=== PATIENT | female | born 1985 | race Hispanic/Latino ===

== ENCOUNTER 2019-04-13 10:07 | Emergency (ER) | payer BC, OTHER ==
[2019-04-13 10:54] LABS: BASOPHILS % (AUTO) 0.4 % (0.0-5.0); EOSINOPHILS % (AUTO) 1.3 % (0.0-8.0); HEMATOCRIT 40.3 % (36-48); LYMPHOCYTES % (AUTO) 24.1 % (21.0-51.0); MEAN CORPUSCULAR HEMOGLOBIN 27.4 pg (27.0-33.0); MEAN CORPUSCULAR VOLUME 82.9 fL (79-99); MONOCYTES % (AUTO) 5.3 % (3.0-13.0); NEUTROPHILS % (AUTO) 68.6 % (40.0-77.0); PLATELET COUNT (AUTO) 293 K/uL (130-400); RED BLOOD CELL COUNT(AUTO) 4.86 MIL/uL (4.00-5.50); RED CELL DISTRIBUTION WIDTH 12.2 % (11.0-15.5); WHITE BLOOD COUNT (AUTO) 7.8 K/uL (4.8-10.8)
[2019-04-13 10:58] LABS: APPEARANCE,URINE Clear (CLEAR); BILIRUBIN,URINE Negative (NEGATIVE); COLOR,URINE Yellow (YELLOW); GLUCOSE, URINE (UA) Negative (NEGATIVE); KETONES,URINE Negative (NEGATIVE); LEUKOCYTE ESTERASE ,URINE Negative (NEGATIVE); NITRATE,URINE Negative (NEGATIVE); OCCULT BLOOD,URINE Negative (NEGATIVE); PROTEIN,URINE Negative (NEGATIVE)
[2019-04-13 11:00] LABS: CREATININE 0.8 mg/dL (0.5-1.5); POTASSIUM 3.8 mmol/L (3.5-5.1)
[2019-04-13 11:06] LABS: HCG,QUAL RESULT NEGATIVE (NEGATIVE)
[2019-04-13 11:07] LABS: ALBUMIN 3.6 g/dL (3.5-5.0); BILIRUBIN,TOTAL 0.8 mg/dL (0.2-1.0); TOTAL PROTEIN, SERUM 8.3 g/dL (6.0-8.3)
== END 2019-04-13 11:23 | disposition home or self-care (01) ==
LOC: EDH 10:07
DX: R10.11 Right upper quadrant pain (principal); Z98.890 Other specified postprocedural states; Z88.0 Allergy status to penicillin
CPT/HCPCS: 36415; 80053; 81003; 81025; 83690; 85025

== ENCOUNTER 2022-03-27 15:57 | Emergency (ER) | payer BC ==
[~2022-03-27] VITALS: Ht 167.6 cm; Wt 140.6 kg
[2022-03-27 16:45] LABS: BASOPHILS % (AUTO) 0.4 % (0.0-5.0); EOSINOPHILS % (AUTO) 2.4 % (0.0-8.0); HEMATOCRIT 42.7 % (36-48); LYMPHOCYTES % (AUTO) 28.7 % (21.0-51.0); MEAN CORPUSCULAR HEMOGLOBIN 28.3 pg (27.0-33.0); MEAN CORPUSCULAR HGB CONC 33.5 g/dL (32.0-36.0); MEAN CORPUSCULAR VOLUME 84.4 fL (79-99); MONOCYTES % (AUTO) 8.1 % (3.0-13.0); NEUTROPHILS % (AUTO) 60.1 % (40.0-77.0); PLATELET COUNT (AUTO) 318 K/uL (130-400); RED BLOOD CELL COUNT(AUTO) 5.06 MIL/uL (4.00-5.50); RED CELL DISTRIBUTION WIDTH 12.6 % (11.0-15.5); WHITE BLOOD COUNT (AUTO) 9.5 K/uL (4.8-10.8)
[2022-03-27 16:52] LABS: APPEARANCE,URINE CLEAR (CLEAR); BILIRUBIN,URINE NEGATIVE (NEGATIVE); COLOR,URINE LIGHT-YELLOW (YELLOW); GLUCOSE, URINE (UA) NEGATIVE (NEGATIVE); KETONES,URINE NEGATIVE (NEGATIVE); LEUKOCYTE ESTERASE ,URINE 25 Leu/uL (NEGATIVE); NITRATE,URINE NEGATIVE (NEGATIVE); OCCULT BLOOD,URINE NEGATIVE (NEGATIVE); PH,URINE 6.5 (5.0-8.0); PROTEIN,URINE NEGATIVE (NEGATIVE); UROBILINOGEN,URINE 0.2 mg/dL (0.2-1.0)
[2022-03-27 16:55] LABS: HCG,QUALITATIVE URINE NEGATIVE (NEGATIVE)
[2022-03-27 17:12] LABS: BACTERIA,URINE RARE /HPF (None Seen); RBC,URINE 0-1 /HPF (0-1); SQUAMOUS EPITHELIAL CELL,UR FEW /HPF (0-2)
[2022-03-27 17:24] LABS: ALBUMIN 3.7 g/dL (3.5-5.0); CREATININE 0.7 mg/dL (0.5-1.5); POTASSIUM 3.8 mmol/L (3.5-5.1); TOTAL PROTEIN, SERUM 8.9 g/dL (6.0-8.3)
[2022-03-27 18:42] VITALS: BP 141/78
[2022-03-27] MEDS ORDERED: SULF1TAB42 PO (19:24)
== END 2022-03-27 19:30 | disposition home or self-care (01) ==
LOC: EDH 15:57
DX: J18.9 Pneumonia, unspecified organism (principal); R07.89 Other chest pain; I10 Essential (primary) hypertension; Z20.822 Contact with and (suspected) exposure to COVID-19
CPT/HCPCS: 99284; 71045; 87635; 84484; 80053; 85025; 87804 ×2; 81001; 81025; 36415; 93005; C9803

== ENCOUNTER 2023-07-08 22:49 | Emergency (ER) | payer BC ==
[~2023-07-08] VITALS: Ht 167.6 cm; Wt 149.7 kg
[~2023-07-08 22:49] MED LIST: SULF1TAB42 PO
[2023-07-09 00:52] VITALS: BP 138/82; PULSE 85; RESP 18; O2SAT 99
== END 2023-07-09 00:55 | disposition home or self-care (01) ==
LOC: EDH 22:49
DX: M25.521 Pain in right elbow (principal); R20.0 Anesthesia of skin; I10 Essential (primary) hypertension; Z98.890 Other specified postprocedural states
CPT/HCPCS: 73030; 73060; 73080

== ENCOUNTER → 2023-07-15 | Outpatient (CLI) | payer BC ==
[~2023-07-15] MED LIST changes: +LORA10CA PO; +METO100T14 PO
[2023-07-15 12:42] LABS: BASOPHILS # (AUTO) 0.05 K/uL (0.00-0.20); BASOPHILS % (AUTO) 0.5 % (0.0-5.0); EOSINOPHILS # (AUTO) 0.19 K/uL (0.00-0.70); EOSINOPHILS % (AUTO) 1.7 % (0.0-8.0); HEMATOCRIT 44.6 % (36-48); IMMATURE GRANULOCYTE ABSOLUTE 0.04 K/uL (0-1); LYMPHOCYTES # (AUTO) 2.5 K/uL (1.0-4.8); LYMPHOCYTES % (AUTO) 22.8 % (21.0-51.0); MEAN CORPUSCULAR HEMOGLOBIN 28.7 pg (27.0-33.0); MEAN CORPUSCULAR HGB CONC 33.6 g/dL (32.0-36.0); MEAN CORPUSCULAR VOLUME 85.3 fL (79-99); MONOCYTES # (AUTO) 0.7 K/uL (0.1-1.0); MONOCYTES % (AUTO) 6.3 % (3.0-13.0); NEUTROPHILS # (AUTO) 7.6 K/uL (1.8-7.7); NEUTROPHILS % (AUTO) 68.3 % (40.0-77.0); PLATELET COUNT (AUTO) 321 K/uL (130-400); RED BLOOD CELL COUNT(AUTO) 5.23 MIL/uL (4.00-5.50); RED CELL DISTRIBUTION WIDTH 12.2 % (11.0-15.5); WHITE BLOOD COUNT (AUTO) 11.1 K/uL (4.8-10.8)
[2023-07-15 13:10] LABS: HEMOGLOBIN A1C 6.8 % (4.0-6.0)
[2023-07-15 13:31] LABS: ALBUMIN 3.5 g/dL (3.5-5.0); BILIRUBIN,TOTAL 0.8 mg/dL (0.2-1.0); CREATININE 0.7 mg/dL (0.5-1.0); MAGNESIUM 1.8 mg/dL (1.80-2.40); POTASSIUM 3.9 mmol/L (3.5-5.1); THYROID STIMULATING HORMONE 3.08 uIU/mL (0.36-3.74); TOTAL PROTEIN, SERUM 8.7 g/dL (6.0-8.3)
== END | disposition home or self-care (01) ==
LOC: RAH 09:06
PROVIDERS: ATTEND Surgery
DX: I10 Essential (primary) hypertension (principal); E66.01 Morbid (severe) obesity due to excess calories; K76.0 Fatty (change of) liver, not elsewhere classified; E78.00 Pure hypercholesterolemia, unspecified; R16.0 Hepatomegaly, not elsewhere classified; E11.9 Type 2 diabetes mellitus without complications; M19.91 Primary osteoarthritis, unspecified site; Z79.899 Other long term (current) drug therapy
CPT/HCPCS: 36415; 76705; 80050; 80053; 80061; 82306; 82607; 82746; 83036; 83540; 83735; 84207; 84425; 84436; 84443; 84446; 84481; 84590; 84630; 85025

== ENCOUNTER → 2023-07-31 | Outpatient (CLI) | payer SELFPAY ==
[~2023-07-31] MED LIST changes: -LORA10CA PO; -METO100T14 PO
== END | disposition home or self-care (01) ==
LOC: DTH 16:06
PROVIDERS: ATTEND Surgery
DX: Z71.3 Dietary counseling and surveillance (principal); E66.01 Morbid (severe) obesity due to excess calories; I10 Essential (primary) hypertension; M19.91 Primary osteoarthritis, unspecified site; K76.0 Fatty (change of) liver, not elsewhere classified; E11.9 Type 2 diabetes mellitus without complications
CPT/HCPCS: 97803

== ENCOUNTER → 2023-08-26 | Outpatient (CLI) | payer SELFPAY | END | disposition home or self-care (01) | LOC: DTH 16:09 | PROVIDERS: ATTEND Surgery | DX: E66.01 Morbid (severe) obesity due to excess calories (principal); G47.33 Obstructive sleep apnea (adult) (pediatric); I10 Essential (primary) hypertension; M19.91 Primary osteoarthritis, unspecified site; K76.0 Fatty (change of) liver, not elsewhere classified; E11.9 Type 2 diabetes mellitus without complications; Z68.43 Body mass index [BMI] 50.0-59.9, adult; Z71.3 Dietary counseling and surveillance | CPT/HCPCS: 97803 ==

== ENCOUNTER 2023-09-08 06:57 | Day surgery (SDC) | payer BC ==
[~2023-09-08] VITALS: Ht 167.6 cm; Wt 148.3 kg
[~2023-09-08 06:57] MED LIST changes: +METO100T14 PO; -SULF1TAB42 PO
[2023-09-08] MEDS ORDERED: 0.9%NACL 1000ML 1,000 ML IV ONE (07:14)
[2023-09-08 07:30] VITALS: BP 150/108; PULSE 84; RESP 16
[2023-09-08] MEDS ORDERED: LORA10CA PO (07:55)
[2023-09-08] MEDS ORDERED: PROPOFOL 10 MG/ML 20ML VIAL IV ONE ×2 (08:01→08:11)
[2023-09-08] MEDS ORDERED: LIDOCAINE PF 100MG/5ML (2%) SYRINGE 5ML ONE (08:03)
== END 2023-09-08 08:50 | disposition home or self-care (01) ==
LOC: DAH 06:57 → ENDO 06:57
PROVIDERS: ATTEND Surgery
DX: K21.9 Gastro-esophageal reflux disease without esophagitis (principal); I10 Essential (primary) hypertension; G47.30 Sleep apnea, unspecified; K76.0 Fatty (change of) liver, not elsewhere classified; E11.9 Type 2 diabetes mellitus without complications; E66.01 Morbid (severe) obesity due to excess calories; Z68.43 Body mass index [BMI] 50.0-59.9, adult; Z79.899 Other long term (current) drug therapy; Z98.891 History of uterine scar from previous surgery; Z88.0 Allergy status to penicillin; Z91.040 Latex allergy status
CPT/HCPCS: 82948; 81025; 71045; 43235; 93005; J7030; J2001; J2704 ×2; A4620; A4215 ×2; A4223; A4222; A4221; A4663; A4606; J3490

== ENCOUNTER 2023-11-15 13:48 | Emergency (ER) | payer BC ==
[~2023-11-15] VITALS: Ht 167.6 cm; Wt 145.1 kg
[~2023-11-15 13:48] MED LIST changes: +LORA10CA PO
[2023-11-15 14:41] LABS: BASOPHILS # (AUTO) 0.03 K/uL (0.00-0.20); BASOPHILS % (AUTO) 0.4 % (0.0-5.0); EOSINOPHILS # (AUTO) 0.13 K/uL (0.00-0.70); EOSINOPHILS % (AUTO) 1.9 % (0.0-8.0); HEMATOCRIT 43.3 % (36-48); IMMATURE GRANULOCYTE ABSOLUTE 0.02 K/uL (0-1); LYMPHOCYTES # (AUTO) 1.9 K/uL (1.0-4.8); LYMPHOCYTES % (AUTO) 27.5 % (21.0-51.0); MEAN CORPUSCULAR HEMOGLOBIN 27.8 pg (27.0-33.0); MEAN CORPUSCULAR HGB CONC 33.9 g/dL (32.0-36.0); MONOCYTES # (AUTO) 0.5 K/uL (0.1-1.0); MONOCYTES % (AUTO) 7.8 % (3.0-13.0); NEUTROPHILS # (AUTO) 4.2 K/uL (1.8-7.7); NEUTROPHILS % (AUTO) 62.1 % (40.0-77.0); PLATELET COUNT (AUTO) 309 K/uL (130-400); RED BLOOD CELL COUNT(AUTO) 5.28 MIL/uL (4.00-5.50); RED CELL DISTRIBUTION WIDTH 12.1 % (11.0-15.5); WHITE BLOOD COUNT (AUTO) 6.8 K/uL (4.8-10.8)
[2023-11-15 14:41] LABS: ABG BASE EXCESS 1.6 mmol/L (-2.0-3.0); ABG HCO3 25.9 mmol/L (21.0-28.0); ABG OXYGEN SATURATION 96.5 % (94.0-98.0); ABG PCO2 40 mmHg (32-45); ABG PH 7.433 (7.350-7.450); CARBON MONOXIDE 0.6 % (0.5-1.5); DEVICE COMMENT LR STEVE RN; HHb 3.5; PO2, ARTERIAL BG 85.8 mmHg (83.0-108.0); VENT MODE, BG RA (ROOM AIR)
[2023-11-15 14:48] LABS: CREATININE 0.8 mg/dL (0.5-1.0); POTASSIUM 3.9 mmol/L (3.5-5.1)
[2023-11-15 14:53] LABS: ALBUMIN 3.3 g/dL (3.5-5.0); BILIRUBIN,TOTAL 0.9 mg/dL (0.2-1.0); TOTAL PROTEIN, SERUM 8.3 g/dL (6.0-8.3)
[2023-11-15] MEDS: INSULIN humuLIN R 100 UNIT/ML 3ML IV ONE (14:57)
[2023-11-15] MEDS: 0.9%NACL 1000ML 1,000 ML IV ONE ×2 (14:57→15:15)
[2023-11-15 14:58] LABS: ADD UA MICROSCOPIC YES; APPEARANCE,URINE CLEAR (CLEAR); BILIRUBIN,URINE NEGATIVE (NEGATIVE); COLOR,URINE YELLOW (YELLOW); GLUCOSE, URINE (UA) >=1000 mg/dL (NEGATIVE); KETONES,URINE NEGATIVE (NEGATIVE); LEUKOCYTE ESTERASE ,URINE NEGATIVE Leu/uL (NEGATIVE); NITRATE,URINE NEGATIVE (NEGATIVE); OCCULT BLOOD,URINE NEGATIVE (NEGATIVE); PROTEIN,URINE 30 mg/dL (NEGATIVE); UROBILINOGEN,URINE 0.2 mg/dL (0.2-1.0)
[2023-11-15 14:59] LABS: BACTERIA,URINE RARE /HPF (None Seen); MUCUS,URINE RARE LPF (None Seen); SQUAMOUS EPITHELIAL CELL,UR RARE /HPF (0-2); WBC,URINE 0-1 /HPF (0-1)
[2023-11-15] MEDS: ondanSETRON 4MG INJ IVP ONE (15:15)
[2023-11-15 16:12] VITALS: BP 149/80; PULSE 78; RESP 20; TEMP 98.7; O2SAT 94
== END 2023-11-15 16:29 | disposition home or self-care (01) ==
LOC: EDH 13:48
DX: E11.9 Type 2 diabetes mellitus without complications (principal); I10 Essential (primary) hypertension; Z79.899 Other long term (current) drug therapy; Z88.0 Allergy status to penicillin; Z91.040 Latex allergy status; Z98.890 Other specified postprocedural states
CPT/HCPCS: 99284; 96374; 96361; 82947; 82435; 84132; 84295; 80053; 82803; 85025; 85018; 82948 ×2; 83605; 82010; 81001; 81025; 36415; 36600; J1815; J7030 ×2; J2405

== ENCOUNTER 2023-12-30 22:52 | Emergency (ER) | payer BC ==
[~2023-12-30] VITALS: Ht 167.6 cm; Wt 128.4 kg
[2023-12-30 23:19] LABS: APPEARANCE,URINE CLOUDY (CLEAR); BILIRUBIN,URINE 1 mg/dL (NEGATIVE); COLOR,URINE YELLOW (YELLOW); GLUCOSE, URINE (UA) NEGATIVE (NEGATIVE); KETONES,URINE 150 mg/dL (NEGATIVE); LEUKOCYTE ESTERASE ,URINE 25 Leu/uL (NEGATIVE); NITRATE,URINE NEGATIVE (NEGATIVE); OCCULT BLOOD,URINE SMALL (NEGATIVE); PH,URINE 6.5 (5.0-8.0); PROTEIN,URINE 100 mg/dL (NEGATIVE); UROBILINOGEN,URINE 6 mg/dL (0.2-1.0)
[2023-12-30 23:21] LABS: ADD UA MICROSCOPIC YES
[2023-12-30 23:22] LABS: HCG,QUALITATIVE URINE NEGATIVE (NEGATIVE)
[2023-12-30 23:23] LABS: BACTERIA,URINE FEW /HPF (None Seen); MUCUS,URINE MANY LPF (None Seen); SQUAMOUS EPITHELIAL CELL,UR MOD /HPF (0-2)
[2023-12-30 23:37] LABS: BASOPHILS # (AUTO) 0.04 K/uL (0.00-0.20); BASOPHILS % (AUTO) 0.6 % (0.0-5.0); EOSINOPHILS # (AUTO) 0.17 K/uL (0.00-0.70); EOSINOPHILS % (AUTO) 2.4 % (0.0-8.0); HEMATOCRIT 44.8 % (36-48); IMMATURE GRANULOCYTE ABSOLUTE 0.02 K/uL (0-1); LYMPHOCYTES # (AUTO) 2.5 K/uL (1.0-4.8); LYMPHOCYTES % (AUTO) 34.8 % (21.0-51.0); MEAN CORPUSCULAR HEMOGLOBIN 27.8 pg (27.0-33.0); MEAN CORPUSCULAR VOLUME 79.4 fL (79-99); MONOCYTES # (AUTO) 0.9 K/uL (0.1-1.0); MONOCYTES % (AUTO) 12.3 % (3.0-13.0); NEUTROPHILS # (AUTO) 3.6 K/uL (1.8-7.7); NEUTROPHILS % (AUTO) 49.6 % (40.0-77.0); PLATELET COUNT (AUTO) 302 K/uL (130-400); RED BLOOD CELL COUNT(AUTO) 5.64 MIL/uL (4.00-5.50); RED CELL DISTRIBUTION WIDTH 13.5 % (11.0-15.5); WHITE BLOOD COUNT (AUTO) 7.2 K/uL (4.8-10.8)
[2023-12-30 23:45] LABS: CREATININE 0.8 mg/dL (0.5-1.0)
[2023-12-30 23:50] LABS: POTASSIUM 2.8 mmol/L (3.5-5.1)
[2023-12-31] MEDS ORDERED: IOHEXOL 350 MG/ML 100ML INFUS..BTL IV ONE (00:16)
--- NOTE | 2023-12-31 00:20 | ERN ---
General Chief Complaint: Nausea,Vomiting,Diarrhea Stated Complaint: C/O NAUSEA,UNABLE TO EAT, PALPITATION Time Seen by MD: 22:56 Time Seen by Midlevel: 22:56 Source: patient History of Present Illness Initial Comments 38-year-old female who presents to the ED due to nausea onset 4 days ago. Patient reports a gastric sleeve performed on 12/09/[address] Kirkpatrick. Patient had been diagnosed with UTI two weeks ago states she only took three days of the antibiotic and discontinued. She states unable to eat for the past four days due to nausea.Denies any chest pain, abdominal pain, fever, diarrhea or further associated symptoms. PMHx HTN Allergies: Coded Allergies: Penicillins (Unverified Allergy, Intermediate, 09/05/23) latex (Unverified Allergy, Intermediate, 09/05/23) No Known Drug Allergies (Unverified Allergy, Unknown, 03/27/22) Home Meds Reported Medications Loratadine (Claritin) 10 Mg Capsule, 10 MG PO DAILY, CAP 09/08/23 Metoprolol Tartrate (Metoprolol Tartrate) 100 Mg Tablet, 100 MG PO HS, TAB 09/05/23 Past Medical History Past Medical History: Diabetes-Type II, Hypertension Past Surgical History: Other, Surgical History Other: GASTRIC SLEEVE Family History Family History: DM Social History Social History: Lives with family Female( History) LMP: Dec 30, 2023 ROS Dictation Constitutional: Positive for decreased appetite/oral intake Negative for fever,chills, and weight loss Eyes: Negative for injury, pain,redness, and discharge ENT: Negative for injury,pain or swelling Cardiovascular: Negative for chest pain, palpitations, and edema Respiratory: Negative for shortness of breath, cough, and wheezing, Abdomen/GI: Positive for nausea Negative for abdominal pain, vomiting, diarrhea, and constipation Back: Negative for injury and pain : Negative for painful urination, bleeding or discharge MS/Extremity: Negative for injury and deformity Skin: Negative for rash, and discoloration Neuro: Negative for headache, weakness, numbness, tingling, and seizure Psych: Negative for suicide ideation, homicidal ideation, and hallucinations Physical Exam Physical Exam Dictation General: awake, alert, no acute distress Head/Face: Normocephalic, atraumatic Eyes: normal conjunctiva ENT: oral cavity clear, oral mucosa moist Neck: Supple, normal range of motion Cardiovascular: RRR, normal S1/S2 Respiratory: CTAB, no respiratory distress, No rales or wheezes Abdomen: Soft, non-tender, non-distended, no guarding or rebound. Skin: Warm, dry, normal turgor, no rash MS/Extremity: Pulses equal, no cyanosis, neurovascular intact, FROM Neuro: COAx4, GCS 15, no neurological deficits, normal gait Psych: Normal behavior, mood, and affect normal Results Laboratory and Microbiology Lab and Micro Result Laboratory Tests Test 12/30/23 23:08 12/30/23 23:15 Urine Color YELLOW (YELLOW) Urine Appearance CLOUDY (CLEAR) H Urine pH 6.5 (5.0-8.0) Urine Specific [place] 1.028 (1.001-1.031) Urine Protein 100 mg/dL (NEGATIVE) H Urine Glucose (UA) NEGATIVE mg/dL (NEGATIVE) Urine Ketones 150 mg/dL (NEGATIVE) H Urine Occult Blood SMALL (NEGATIVE) H Urine Nitrate NEGATIVE (NEGATIVE) Urine Bilirubin 1 mg/dL (NEGATIVE) H Urine Urobilinogen 6 mg/dL (0.2-1.0) H Urine Leukocyte Esterase 25 Tanya/uL (NEGATIVE) H Urine RBC 2-5 /HPF (0-1) H Urine WBC 11-25 /HPF (0-1) H Urine Squamous Epithelial Cells MOD /HPF (0-2) Urine Bacteria FEW /HPF (None Seen) Urine HCG, Qualitative NEGATIVE (NEGATIVE) White Blood Count 7.2 K/uL (4.8-10.8) Red Blood Count 5.64 MIL/uL (4.00-5.50) H Hemoglobin 15.7 g/dL (12.0-16.0) Hematocrit 44.8 % (36-48) Mean Corpuscular Volume 79.4 fL (79-99) Mean Corpuscular Hemoglobin 27.8 pg (27.0-33.0) Mean Corpuscular Hemoglobin Concent 35.0 g/dL (32.0-36.0) Red Cell Distribution Width 13.5 % (11.0-15.5) Platelet Count 302 K/uL (130-400) Mean Platelet Volume 11.0 fL (7.5-10.5) H Immature Granulocyte % (Auto) 0.3 % (0-1) Neutrophils (%) (Auto) 49.6 % (40.0-77.0) Lymphocytes (%) (Auto) 34.8 % (21.0-51.0) Monocytes (%) (Auto) 12.3 % (3.0-13.0) Eosinophils (%) (Auto) 2.4 % (0.0-8.0) Basophils (%) (Auto) 0.6 % (0.0-5.0) Neutrophils # (Auto) 3.6 K/uL (1.8-7.7) Lymphocytes # (Auto) 2.5 K/uL (1.0-4.8) Monocytes # (Auto) 0.9 K/uL (0.1-1.0) Eosinophils # (Auto) 0.17 K/uL (0.00-0.70) Basophils # (Auto) 0.04 K/uL (0.00-0.20) Absolute Immature Granulocyte (auto 0.02 K/uL (0-1) Nucleated Red Blood Cells 0.0 % (0.0-0.19) Sodium Level 143 mmol/L (136-145) Potassium Level 2.8 mmol/L (3.5-5.1) *L Chloride Level 100 mmol/L (101-111) L Carbon Dioxide Level 28 mmol/L (21-32) Blood Urea Nitrogen 9 mg/dL (7-18) Creatinine 0.8 mg/dL (0.5-1.0) Glomerular Filtration Rate Calc 98 mL/min (>90) Random Glucose 97 mg/dL (70-105) Total Calcium 9.5 mg/dL (8.5-10.1) Lipase 61 U/L (16-77) Labs Reviewed?: Yes MDM MDM: Differential diagnosis: Rationale: 38-year-old female who presents to the ED due to nausea onset 4 days ago. Patient reports a gastric sleeve performed on 12/09/[address] Kirkpatrick. Patient had been diagnosed with UTI two weeks ago states she only took three days of the antibiotic and discontinued. She states unable to eat for the past four days due to nausea. Denies any chest pain, abdominal pain, fever, diarrhea or further associated symptoms. PMHx HTN Physical examination is normal, patient is in no acute distress, abdomen soft, nontender. Labs obtained which indicate hypokalemia, dehydration, and UA indicates a urinary tract infection. Otherwise labs are nonspecific. CT abdomen and pelvis Librium enlargement measuring 18 cm otherwise no acute findings. Decision for patient admission due to dehydration, and UTI discussed with patient who refused admission. Antibiotics, K-Lyte, IV fluids administered in the ED. Patient was prescribed antibiotics for outpatient treatment. Advised to follow up with PCP. Return to the ED if any worsening symptoms. Patient verbalized understanding. There are no social concerns with this patient. I independently interpreted the test that were performed, results were reviewed by me and considered findings on radiology if ordered. Medical management and examination interpretation discussions were had by me with other qualified healthcare professionals as indicated for the patient's care. ED Course Orders Procedure Category Date Status Time Cbc With Differential LAB 12/30/23 Complete 23: Basic Metabolic Panel LAB 12/30/23 Complete 23: Urinalysis Profile LAB 12/30/23 Complete 23: ,Urine Test LAB 12/30/23 Complete 23: Lipase LAB 12/30/23 Complete 23: 12 Lead Ekg Tracing- EKG 12/30/23 Logged Technical 23:02 0.9%Nacl 1000ml (Ns PHA 12/30/23 Complete 1000ml) 23:30 Ct Abdomen/Pelvis CT 12/30/23 Resulted W/Contrast 23:12 Culture Urine BERE 12/30/23 In Process 23:24 Potassium Bicarb/Cit PHA 12/31/23 Complete Ac 25meq (K-Lyte Ta 00:00 Iohexol (Omnipaque) PHA 12/31/23 Complete 00:16 Current Medications Medications (Trade) Dose Ordered Sig/Kin Route PRN Reason Start Time Stop Time Status Last Admin Dose Admin Iohexol (Omnipaque) 35,000 mg STK-MED ONCE IV 12/31/23 00:16 12/31/23 00:17 DC Potassium Bicarbonate (K-Lyte Tablet Eff 25 Meq Tablet.eff) 50 meq ONCE ONCE PO 12/31/23 00:00 12/31/23 00:01 DC 12/31/23 00:44 Sodium Chloride 1,000 ml @ 0 mls/hr ONCE ONCE IV 12/30/23 23:30 12/30/23 23:31 DC 12/31/23 00:44 Vital Signs Date Time Temp Pulse Resp B/P (MAP) Pulse Ox O2 Delivery O2 Flow Rate FiO2 12/30/23 23:23 97.5 76 18 129/80 99 Room Air* 0 21 12/30/23 22:57 97.5 73 20 146/102 99 Room Air DX & DISP Disposition: Discharge Departure Impression: Primary Impression: UTI (urinary tract infection) Additional Impression: Dehydration Condition: Stable Scripts Ondansetron (Ondansetron Odt) 4 Mg Tab.rapdis 4 MG PO TID for 3 Days, #9 TAB Prov: KHURRAM GARDNER 12/31/23 Nitrofurantoin Monohyd/M-Cryst (Macrobid 100 mg Capsule) 100 Mg Capsule 100 MG PO BID for 5 Days, #10 CAP Prov: KHURRAM GARDNER 12/31/23 Additional Instructions: Discharge home. Rest. Follow up with primary care DrGena in 24 hours. Return to the ER for any acute changes or worsening symptoms. If any medications were prescribed take as directed. Okay to continue home medications unless otherwise discussed during your visit in the emergency room today. Patient was also advised to follow-up with primary care physician in 1 to 2 days for continued monitoring. Referrals: EDMUND GEE Jr., MD (PCP) I participated in the following activities of this patient's care: For this patient encounter, I reviewed the PA or SYSTEMS MGR documentation, treatment plan, and m edical decision making. I did not have [id number] time with this patient. I will sign as the reviewing DrGena And agree with the treatment plan and disposition. KHURRAM GARDNER Dec 31, 2023 00:20
[2023-12-31] MEDS: 0.9%NACL 1000ML 1,000 ML IV ONE (00:44)
[2023-12-31] MEDS: PoTASSium BIcarbonate/CIT AC 25 MEQ TABLET.EFF PO ONE (00:44)
--- NOTE | 2023-12-31 01:08 | HMCIMG ---
CT ABDOMEN/PELVIS W/CONTRAST HISTORY: Nausea and vomiting COMPARISON: None TECHNIQUE: Multiple sequential axial images of the abdomen and pelvis were obtained from the dome of the diaphragm through symphysis pubis. Patient was given 100 cc of Omnipaque through intravenous route. Oral contrast was not given. FINDINGS: No pleural effusion is seen bilaterally. There is no evidence of parenchymal disease or pulmonary nodule of the visualized lower lungs. Degenerative changes of the thoracolumbar spine are present. The heart is not enlarged. Liver is enlarged measuring 18 cm. Post gastric bypass surgical changes are seen. The liver, spleen, adrenal glands and pancreas are unremarkable. There is no evidence of hydronephrosis bilaterally. No evidence of renal stone is seen. Fecal material is seen in the colon. There are normal size retroperitoneal and mesenteric lymph nodes. No ascites is seen. No CT evidence of acute appendicitis is seen. Pelvic sidewalls are symmetric bilaterally. Bladder is poorly distended. IMPRESSION: 1. No acute findings. CT was performed with one or more following dose reduction techniques: automated exposure control, adjustment of the mA and kv according to patient's size, or use of a iterative reconstruction technique.
[2023-12-31] MEDS ORDERED: NITR100C4 PO (01:58)
[2023-12-31] MEDS ORDERED: ONDA-243 PO (01:58)
[2023-12-31] MEDS: cefTRIAXone 1G VIAL IVPB ONE (02:19)
[2023-12-31 02:33] VITALS: BP 122/74; PULSE 78; RESP 16; TEMP 97.6; O2SAT 99
--- NOTE | 2023-12-31 06:27 | EKG ---
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
== END 2023-12-31 02:46 | disposition home or self-care (01) ==
LOC: EDH 22:52
DX: N39.0 Urinary tract infection, site not specified (principal); E86.0 Dehydration; E11.9 Type 2 diabetes mellitus without complications; I10 Essential (primary) hypertension; Z88.0 Allergy status to penicillin
CPT/HCPCS: 99284; 74177; 80048; 83690; 85025; 87086; 81001; 81025; 36415; 93005; 96365; 96361; J7030; J0696; Q9967; 96374

== ENCOUNTER 2024-01-03 14:49 | Emergency (ER) | payer BC ==
[~2024-01-03] VITALS: Ht 167.6 cm; Wt 129.3 kg
[~2024-01-03 14:49] MED LIST changes: +NITR100C4 PO; +ONDA-243 PO
[2024-01-03 15:33] LABS: BASOPHILS # (AUTO) 0.03 K/uL (0.00-0.20); BASOPHILS % (AUTO) 0.4 % (0.0-5.0); EOSINOPHILS # (AUTO) 0.09 K/uL (0.00-0.70); EOSINOPHILS % (AUTO) 1.3 % (0.0-8.0); HEMATOCRIT 43.3 % (36-48); IMMATURE GRANULOCYTE ABSOLUTE 0.01 K/uL (0-1); LYMPHOCYTES # (AUTO) 1.8 K/uL (1.0-4.8); LYMPHOCYTES % (AUTO) 26.7 % (21.0-51.0); MEAN CORPUSCULAR HEMOGLOBIN 28.1 pg (27.0-33.0); MEAN CORPUSCULAR HGB CONC 33.9 g/dL (32.0-36.0); MEAN CORPUSCULAR VOLUME 82.6 fL (79-99); MONOCYTES # (AUTO) 0.5 K/uL (0.1-1.0); MONOCYTES % (AUTO) 7.3 % (3.0-13.0); NEUTROPHILS # (AUTO) 4.4 K/uL (1.8-7.7); NEUTROPHILS % (AUTO) 64.2 % (40.0-77.0); PLATELET COUNT (AUTO) 225 K/uL (130-400); RED BLOOD CELL COUNT(AUTO) 5.24 MIL/uL (4.00-5.50); RED CELL DISTRIBUTION WIDTH 13.6 % (11.0-15.5); WHITE BLOOD COUNT (AUTO) 6.9 K/uL (4.8-10.8)
[2024-01-03 15:48] LABS: CREATININE 0.8 mg/dL (0.5-1.0)
[2024-01-03 15:50] LABS: POTASSIUM 2.9 mmol/L (3.5-5.1)
[2024-01-03] MEDS: PoTASSium chloRIDE 10MEQ/100ML 100 ML IV ONE (15:59)
[2024-01-03] MEDS: PoTASSium BIcarbonate/CIT AC 25 MEQ TABLET.EFF PO ONE (15:59)
--- NOTE | 2024-01-03 16:01 | ERN ---
General Chief Complaint: Post-Op Problem Stated Complaint: POST OP, NAUSEA Time Seen by MD: 14:53 Source: patient History of Present Illness Initial Comments PATIENT IS A 38-YEAR-OLD FEMALE COMING IN TO BE EVALUATED GENERALIZED BODY WEAKNESS. PATIENT WAS RECENTLY SENT HOME AFTER GASTRIC BYPASS STATES HE HAS BEEN HAVING THESE FREQUENT EPISODES OF NAUSEOUSNESS AND FOR HER SURGEON SHE IS TO BE EVALUATED FOR DEHYDRATION. Allergies: Coded Allergies: Penicillins (Unverified Allergy, Intermediate, 09/05/23) latex (Unverified Allergy, Intermediate, 09/05/23) No Known Drug Allergies (Unverified Allergy, Unknown, 03/27/22) Home Meds Active Scripts Ondansetron (Ondansetron Odt) 4 Mg Tab.rapdis, 4 MG PO TID for 3 Days, #9 TAB Prov:KHURRAM GARDNER 12/31/23 Nitrofurantoin Monohyd/M-Cryst (Macrobid 100 mg Capsule) 100 Mg Capsule, 100 MG PO BID for 5 Days, #10 CAP Prov:KHURRAM GARDNER 12/31/23 Reported Medications Loratadine (Claritin) 10 Mg Capsule, 10 MG PO DAILY, CAP 09/08/23 Metoprolol Tartrate (Metoprolol Tartrate) 100 Mg Tablet, 100 MG PO HS, TAB 09/05/23 Past Medical History Past Medical History: Diabetes-Type II, Hypertension Past Surgical History: Other, Surgical History Other: GASTRIC SLEEVE Family History Family History: DM Social History Social History: Lives with family Female( History) LMP: Dec 23, 2023 ROS Dictation CONSTITUTIONAL: NO CHILLS, NO FEVER, NO WEAKNESS, NO DIAPHORESIS, NO MALAISE. HEAD/FACE: NO SIGNS OF TRAUMA. EENT: NO EYE PAIN, NO BLURRED VISION, NO TEARING, NO DOUBLE VISION, NO EAR PAIN, NO EAR DISCHARGE, NO NOSE PAIN, NO NASAL CONGESTION, NO THROAT PAIN, NO THROAT SWELLING, NO MOUTH PAIN. RESPIRATORY: NO COUGH, NO ORTHOPNEA, NO SOB, NO STRIDOR, NO WHEEZING. CARDIOVASCULAR: NO CHEST PAIN, NO EDEMA, NO PALPITATIONS, NO SYNCOPE. GASTROINTESTINAL/ABDOMINAL: NO ABDOMINAL PAIN, NO CONSTIPATION, NO DIARRHEA, NO NAUSEA, NO VOMITING. GENITOURINARY: NO ABNORMAL DISCHARGE, NO DYSURIA, NO FREQUENT URINATION, NO HEMATURIA. NO COMPLAINTS OF PAIN IN THE GENITALS. MUSCULOSKELETAL: NO BACK PAIN, NO GOUT, NO JOINT PAIN, NO JOINT SWELLING, NO MUSCLE PAIN, NO MUSCLE STIFFNESS, NO NECK PAIN. INTEGUMENTARY: NO CHANGE IN COLOR, NO CHANGE IN HAIR/NAILS, NO DRYNESS, NO LESION, NO LUMPS, NO RASH. NEUROLOGICAL/PSYCH: NO ANXIETY, NOT DEPRESSED, NO EMOTIONAL PROBLEM, NO HEADACHE, NO NUMBNESS, NO PRE-EXISTING DEFICIT, NO HISTORY OF SEIZURES, NO TREMORS, NO WEAKNESS. HEMATOLOGIC/LYMPHATIC: NOT ANEMIC, NO HISTORY OF BLOOD CLOTS, NO APPARENT BLEEDING, NO BRUISING, GLANDS NOT SWOLLEN. ALL SYSTEMS NEGATIVE, EXCEPT NOTED. Physical Exam Physical Exam Dictation VITAL SIGNS: REVIEWED. GENERAL APPEARANCE: ALERT, ORIENTED X3, NO ACUTE DISTRESS, OBESE. HEAD AND FACE: NON-TRAUMATIC. EYES: PERRL, PINK CONJUNCTIVAS, EYELID NO TRAUMA, ANTERIOR CHAMBER CLEAR. EARS: PINNAS INTACT AND NO SIGNS OF TRAUMA OR ERYTHEMA. EAR CANALS CLEAR AND NO DISCHARGE. TMS NO ERYTHEMA. NOSE: NO DISCHARGE, NO BLEEDING. OROPHARYNX: MOUTH NORMAL, TEETH NO CARIES, TONGUE PINK. PHARYNX CLEAR, NO ERYTHEMA. TONSILS NO EXUDATES, NO ABSCESSES NOTED. MUCOUS MEMBRANE MOIST. NECK: SUPPLE, NON-TENDER, NO THYROMEGALY, NO MASSES, NO JVD, NO BRUITS. BREAST: DEFERRED. CHEST: NO TENDERNESS, NO CREPITUS, NO PARADOXICAL MOVEMENT, NO RETRACTIONS. LUNGS: CLEAR, WELL-VENTILATED, SYMMETRIC, NO RALES, NO WHEEZING, NO RHONCHI, NO STRIDOR, GOOD BREATH SOUNDS BILATERALLY. HEART: REGULAR RATE, REGULAR RHYTHM, NO MURMUR, NO GALLOPS. VASCULAR: NO PERIPHERAL EDEMA. ABDOMEN: SOFT, POSITIVE BOWEL SOUNDS, NONDISTENDED, NO GUARDING, NONTENDER, NO REBOUND, NO MASSES NO HEPATOMEGALY, NO SPLENOMEGALY, NO AVALOS'S SIGN, NO HERNIAS. RECTAL: DEFERRED. GENITAL: DEFERRED. NEUROLOGICAL: NORMAL SPEECH, GROSS MOTOR FUNCTION INTACT, GROSS SENSORY FUNCTION INTACT. MUSCULOSKELETAL: NECK NONTENDER, FULL RANGE OF MOTION, BACK NONTENDER, FULL RANGE OF MOTION. EXTREMITIES: NONTENDER, FULL RANGE OF MOTION. SKIN: COLOR PINK, DRY, NO TURGOR, NO RASH, NO LACERATIONS, NO ABRASIONS, NO CONTUSIONS. LYMPHATICS: DEFERRED. Results Laboratory and Microbiology Lab and Micro Result Laboratory Tests Test 11/16/24 15:02 01/03/24 15:26 Magnesium Level 1.80 mg/dL (1.80-2.40) White Blood Count 6.9 K/uL (4.8-10.8) Red Blood Count 5.24 MIL/uL (4.00-5.50) Hemoglobin 14.7 g/dL (12.0-16.0) Hematocrit 43.3 % (36-48) Mean Corpuscular Volume 82.6 fL (79-99) Mean Corpuscular Hemoglobin 28.1 pg (27.0-33.0) Mean Corpuscular Hemoglobin Concent 33.9 g/dL (32.0-36.0) Red Cell Distribution Width 13.6 % (11.0-15.5) Platelet Count 225 K/uL (130-400) Mean Platelet Volume 11.1 fL (7.5-10.5) H Immature Granulocyte % (Auto) 0.1 % (0-1) Neutrophils (%) (Auto) 64.2 % (40.0-77.0) Lymphocytes (%) (Auto) 26.7 % (21.0-51.0) Monocytes (%) (Auto) 7.3 % (3.0-13.0) Eosinophils (%) (Auto) 1.3 % (0.0-8.0) Basophils (%) (Auto) 0.4 % (0.0-5.0) Neutrophils # (Auto) 4.4 K/uL (1.8-7.7) Lymphocytes # (Auto) 1.8 K/uL (1.0-4.8) Monocytes # (Auto) 0.5 K/uL (0.1-1.0) Eosinophils # (Auto) 0.09 K/uL (0.00-0.70) Basophils # (Auto) 0.03 K/uL (0.00-0.20) Absolute Immature Granulocyte (auto 0.01 K/uL (0-1) Nucleated Red Blood Cells 0.0 % (0.0-0.19) Sodium Level 144 mmol/L (136-145) Potassium Level 2.9 mmol/L (3.5-5.1) *L Chloride Level 101 mmol/L (101-111) Carbon Dioxide Level 28 mmol/L (21-32) Blood Urea Nitrogen 8 mg/dL (7-18) Creatinine 0.8 mg/dL (0.5-1.0) Glomerular Filtration Rate Calc 98 mL/min (>90) Random Glucose 111 mg/dL (70-105) H Total Calcium 9.2 mg/dL (8.5-10.1) Total Creatine Kinase 80 U/L (21-232) MDM MDM: DIFFERENTIAL DIAGNOSIS: DEHYDRATION, HYPOKALEMIA, Patient is a 38-year-old female status post gastric bypass coming in to be evaluated for nausea and vomiting. Per patient she was evaluated by surgeon sent in for hydration. I advised patient admission for further evaluation but she refused. I advised her appropriate follow up with PCP and surgeon as indic ated. ED Course Orders Procedure Category Date Status Time Cbc With Differential LAB 01/03/24 Complete 15:02 Basic Metabolic Panel LAB 01/03/24 Complete 15:02 Creatine Kinase, Total LAB 01/03/24 Complete 15:02 Magnesium LAB 01/03/24 Complete 15:51 Potassium Bicarb/Cit PHA 01/03/24 Complete Ac 25meq (K-Lyte Ta 16:00 Potassium Chloride PHA 01/03/24 Complete 10meq/100ml ([place] 16:00 Current Medications Medications (Trade) Dose Ordered Sig/Kin Route PRN Reason Start Time Stop Time Status Last Admin Dose Admin Potassium Bicarbonate (K-Lyte Tablet Eff 25 Meq Tablet.eff) 50 meq ONCE ONCE PO 01/03/24 16:00 01/03/24 16:01 DC 01/03/24 15:59 Potassium Chloride 100 ml @ 100 mls/hr ONCE ONCE IV 01/03/24 16:00 01/03/24 16:59 DC 01/03/24 15:59 Vital Signs Date Time Temp Pulse Resp B/P (MAP) Pulse Ox O2 Delivery O2 Flow Rate FiO2 01/03/24 16:54 98.2 62 18 120/64 96 Room Air* 0 21 01/03/24 15:00 98.2 62 18 118/80 98 Room Air* 0 21 01/03/24 14:51 97.9 71 16 114/77 96 Room Air 0 DX & DISP Disposition: Discharge Departure Impression: Primary Impression: Dehydration Additional Impression: Hypokalemia Condition: Stable Additional Instructions: FOLLOW-UP WITH PRIMARY CARE PROVIDER IN 1 TO 2 DAYS. TAKE MEDICATIONS DIRECTED HERE IN THE EMERGENCY ROOM. OKAY TO CONTINUE HOME MEDICATIONS UNLESS OTHERWISE DISCUSSED DURING YOUR VISIT IN THE EMERGENCY ROOM TODAY. RETURN TO YOUR NEAREST EMERGENCY ROOM IF SYMPTOMS WORSEN OR IF THERE IS NO IMPROVEMENT. CALL 911 IF YOU NEED IMMEDIATE ASSISTANCE. TAKE TYLENOL DOGE-IEU-CGPILEU NEEDED AND IF NO CONTRAINDICATIONS ARE PRESENT. INCREASE ORAL HYDRATION. A WOUND CULTURE OR URINE CULTURE WAS ORDERED HERE IN THE EMERGENCY ROOM DEPARTMENT PLEASE FOLLOW-UP WITH PRIMARY CARE PROVIDER AND ADVISE THEM TO GET REPEAT PORTS FROM OUR FACILITY. IF YOU HAD ANY LEO WRAP/SPLINTS THAT WERE APPLIED HERE, PLEASE DO NOT REMOVE THEM UNTIL YOU SEE YOUR PRIMARY CARE OR SPECIALTY. Referrals: Referrals: EDMUND GEE Jr., MD (PCP) Time of Disposition: 17:18 JANEL SCHULTZ MD Jan 03, 2024 16:01
[2024-01-03 16:54] VITALS: BP 120/64; PULSE 62; RESP 18; TEMP 98.2; O2SAT 96
== END 2024-01-03 17:28 | disposition home or self-care (01) ==
LOC: EDH 14:49
DX: E86.0 Dehydration (principal); E87.6 Hypokalemia; E11.9 Type 2 diabetes mellitus without complications; I10 Essential (primary) hypertension; Z88.0 Allergy status to penicillin; Z98.84 Bariatric surgery status
CPT/HCPCS: 99284; 96365; 82550; 83735; 80048; 85025; 36415; J3480

== ENCOUNTER 2024-01-27 20:54 | Emergency (ER) | payer BC ==
[~2024-01-27] VITALS: Ht 167.6 cm; Wt 124.7 kg
[2024-01-27 20:55] VITALS: TEMP 98.2
[2024-01-27 21:21] VITALS: BP 145/83; PULSE 83; RESP 18; O2SAT 99
--- NOTE | 2024-01-27 21:31 | ERN ---
ED Note History of Present Illness Stated Complaint: BACK PAIN Chief Complaint: Back Pain-No Injury Time Seen by MD: 20:55 Dictation: Patient is a 38-year-old female morbid obesity, status post surgical gastric bypass in November 2023 who presented to the ER complaining of bilateral lower back pain exacerbated by eating. Patient went to at local urgent care and was told that did not treated the kind of patient pain(4 patient reports). Patient denies fever chills, nausea, vomiting. Allergies: Coded Allergies: Penicillins (Unverified Allergy, Intermediate, 09/05/23) latex (Unverified Allergy, Intermediate, 09/05/23) Home Meds Active Scripts Ibuprofen (Ibuprofen) 400 Mg Tablet, 400 MG PO Q6HPRN, #10 TAB Prov:BALTAZAR CHAUDHARY MD 01/27/24 Sulfamethoxazole/Trimethoprim (Bactrim Ds Tablet) 800 Mg-160 Mg Tablet, 1 TAB PO BID for 7 Days, #14 TAB 0 Refills Prov:BALTAZAR CHAUDHARY MD 01/27/24 Ondansetron (Ondansetron Odt) 4 Mg Tab.rapdis, 4 MG PO TID for 3 Days, #9 TAB Prov:KHURRAM GARDNER 12/31/23 Nitrofurantoin Monohyd/M-Cryst (Macrobid 100 mg Capsule) 100 Mg Capsule, 100 MG PO BID for 5 Days, #10 CAP Prov:KHURRAM GARDNER 12/31/23 Reported Medications Loratadine (Claritin) 10 Mg Capsule, 10 MG PO DAILY, CAP 09/08/23 Metoprolol Tartrate (Metoprolol Tartrate) 100 Mg Tablet, 100 MG PO HS, TAB 09/05/23 Past Medical History Past Medical History: Diabetes-Type II, High Cholesterol, Hypertension Surgical History: Surgical History Other: GASTRIC SLEEVE Family History: DM Social History: Lives with family LMP: Jan 27, 2024 Review of System Dictation NEGATIVE EXCEPT PER HPI Constitutional: Negative for fever,chills, and weight loss Eyes: Negative for injury, pain,redness, and discharge ENT: Negative for injury,pain or swelling Cardiovascular: denies chest pain, palpitations, and edema Respiratory: Negative for shortness of breath, cough, and wheezing, Abdomen/GI: Negative for abdominal pain, nausea, vomiting, diarrhea, and constipation Back: Reports back pain : Negative for injury, bleeding and discharge MS/Extremity: Negative for injury and deformity Skin: Negative for rash, and discoloration Neuro: Negative for headache, weakness, numbness, tingling, and seizure Psych: Negative for suicide ideation, homicidal ideation, and hallucinations Initial Vital Sign VS Vital Signs Date Time Temp Pulse Resp B/P (MAP) Pulse Ox O2 Delivery O2 Flow Rate FiO2 01/27/24 20:55 98.2 79 18 121/89 99 0 01/27/24 21:21 Room Air* 21 Physical Exam Dictation General: awake, alert, NAD Head/Face: Normocephalic, atraumatic Eyes: PERRL, EOMI, vision at baseline ENT: oral cavity clear, TMs clear, no signs of infection Neck: Trachea midline, supple, no nuchal rigidity Cardiovascular: RRR, normal S1/S2, No MRGs, no JVD Respiratory: CTAB, no respiratory distress, No rales or wheezes Abdomen: Soft , no tender Skin: Warm, dry, normal turgor, no rash MS/Extremity: Pulses equal, no cyanosis, neurovascular intact, FROM Neuro: COAx4, GCS 15, strength 5/5, CN 2-12 intact, normal cerebellar exam, normal gait, Psych: Normal behavior, mood, and affect normal Results (Laboratory/Radiology) Laboratory/Radiology Laboratory Tests Test 01/27/24 21:06 01/27/24 21:19 Urine Color LIGHT-ORANGE (YELLOW) Urine Appearance CLOUDY (CLEAR) H Urine pH 6.0 (5.0-8.0) Urine Specific [place] 1.032 (1.001-1.031) Urine Protein 70 mg/dL (NEGATIVE) H Urine Glucose (UA) NEGATIVE mg/dL (NEGATIVE) Urine Ketones 150 mg/dL (NEGATIVE) H Urine Occult Blood LARGE (NEGATIVE) H Urine Nitrate NEGATIVE (NEGATIVE) Urine Bilirubin NEGATIVE mg/dL (NEGATIVE) Urine Urobilinogen 3 mg/dL (0.2-1.0) H Urine Leukocyte Esterase 25 Tanya/uL (NEGATIVE) H Urine RBC TNTC /HPF (0-1) H Urine WBC 51-100 /HPF (0-1) H Urine Squamous Epithelial Cells RARE /HPF (0-2) Urine Other Crystals (Auto) 3 /HPF (None Seen) Urine Bacteria RARE /HPF (None Seen) Urine Other Casts 9 /LPF (None Seen) Urine Yeast RARE /HPF (None Seen) Urine HCG, Qualitative NEGATIVE (NEGATIVE) Sodium Level 135 mmol/L (136-145) L Potassium Level 3.2 mmol/L (3.5-5.1) L Chloride Level 103 mmol/L (101-111) Carbon Dioxide Level 29 mmol/L (21-32) Blood Urea Nitrogen 12 mg/dL (7-18) Creatinine 0.6 mg/dL (0.5-1.0) Glomerular Filtration Rate Calc 119 mL/min (>90) Random Glucose 93 mg/dL (70-105) Total Calcium 9.3 mg/dL (8.5-10.1) Total Bilirubin 0.9 mg/dL (0.2-1.0) Aspartate Amino Transf (AST/SGOT) 83 U/L (10-37) H Alanine Aminotransferase (ALT/SGPT) 113 U/L (12-78) H Alkaline Phosphatase 79 U/L (50-136) Total Protein 8.0 g/dL (6.0-8.3) Albumin 3.2 g/dL (3.5-5.0) L Amylase Level 32 U/L (25-115) Lipase 41 U/L (16-77) ED Course ED Course Orders Procedure Category Date Status Time Comprehensive LAB 01/27/24 Complete Metabolic Panel 21:13 Lipase LAB 01/27/24 Complete 21:13 ,Urine Test LAB 01/27/24 Complete 21:13 Amylase LAB 01/27/24 Complete 21:13 Urinalysis Profile LAB 01/27/24 Complete 21:13 Culture Urine BERE 01/27/24 In Process 21:42 Ketorolac PHA 01/27/24 Complete Tromethamine 15mg/Ml 22:00 Sulfamethox-Tmp Ds PHA 01/27/24 In Process 800/160 Tab (Bactrim 22:00 Ibuprofen 600 Mg PHA 01/27/24 Complete Tablet (Motrin) 22:00 Current Medications Medications (Trade) Dose Ordered Sig/Kin Route PRN Reason Start Time Stop Time Status Last Admin Dose Admin Ibuprofen (moTRIN) 600 mg ONCE ONCE PO 01/27/24 22:00 01/27/24 22:01 DC 01/27/24 21:56 Ketorolac Tromethamine (toRADol) 15 mg ONCE ONCE IM 01/27/24 22:00 01/27/24 22:01 DC 01/27/24 21:57 Trimethoprim/ Sulfamethoxazole (BactRIM DS) 1 tab ONCE PO 01/27/24 22:00 02/06/24 21:59 01/27/24 21:56 Vital Signs Date Time Temp Pulse Resp B/P (MAP) Pulse Ox O2 Delivery O2 Flow Rate FiO2 01/27/24 21:21 83 18 145/83 99 Room Air* 0 21 01/27/24 20:55 98.2 79 18 121/89 99 0 Medical Decision Making MDM 38-year-old female with bilateral lower back pain, patient states that he asso ciated with ingestion of food. I explained to the patient that the location where she mentioned that she has a pain does match with a history of ingestion of food. I explained to her that I will room a CBC, CMP, UA. If results negative patient is to follow up with her surgeon Dr. Stewart as outpatient. Pain medication p.r.n. he will be provide. If results negative patient will be discharged home. DX & DISP Disposition: Discharge Departure Impression: Primary Impression: UTI (urinary tract infection) Critical Time: 45 minutes Condition: Stable Scripts Ibuprofen (Ibuprofen) 400 Mg Tablet 400 MG PO Q6HPRN, #10 TAB Prov: BALTAZAR CHAUDHARY MD 01/27/24 Sulfamethoxazole/Trimethoprim (Bactrim Ds Tablet) 800 Mg-160 Mg Tablet 1 TAB PO BID for 7 Days, #14 TAB 0 Refills Prov: BALTAZAR CHAUDHARY MD 01/27/24 Additional Instructions: RETURN TO ER FOR ANY ACUTE OR WORSENING SYMPTOMS. FOLLOW-UP IN 1-2 DAYS WITH PRIMARY PROVIDER FOR RECHECK OF TODAY'S SYMPTOMS. Patient must follow up with her surgeon if symptoms continue after UTI treatment. Referrals: EDMUND GEE Jr., MD (PCP) Time of Disposition: 21:54 BALTAZAR CHAUDHARY MD Jan 27, 2024 21:31
[2024-01-27 21:36] LABS: CREATININE 0.6 mg/dL (0.5-1.0); POTASSIUM 3.2 mmol/L (3.5-5.1)
[2024-01-27 21:40] LABS: ALBUMIN 3.2 g/dL (3.5-5.0); BILIRUBIN,TOTAL 0.9 mg/dL (0.2-1.0)
[2024-01-27 21:40] LABS: ADD UA MICROSCOPIC YES; APPEARANCE,URINE CLOUDY (CLEAR); BILIRUBIN,URINE NEGATIVE (NEGATIVE); COLOR,URINE LIGHT-ORANGE (YELLOW); GLUCOSE, URINE (UA) NEGATIVE (NEGATIVE); KETONES,URINE 150 mg/dL (NEGATIVE); LEUKOCYTE ESTERASE ,URINE 25 Leu/uL (NEGATIVE); NITRATE,URINE NEGATIVE (NEGATIVE); OCCULT BLOOD,URINE LARGE (NEGATIVE); PROTEIN,URINE 70 mg/dL (NEGATIVE); UROBILINOGEN,URINE 3 mg/dL (0.2-1.0)
[2024-01-27 21:42] LABS: BACTERIA,URINE RARE /HPF (None Seen); MUCUS,URINE RARE LPF (None Seen); OTHER CASTS, URINE 9 /LPF (None Seen); RBC,URINE TNTC /HPF (0-1); SQUAMOUS EPITHELIAL CELL,UR RARE /HPF (0-2); UNCLASSIFIED CRYSTAL 3 /HPF (None Seen); WBC,URINE 51-100 /HPF (0-1); YEAST,URINE BUDDING RARE /HPF (None Seen)
[2024-01-27] MEDS ORDERED: SULF1TAB42 PO (21:54)
[2024-01-27] MEDS ORDERED: IBUP-2076 PO (21:54)
[2024-01-27] MEDS: ibuPROFEN 600 MG TABLET PO ONE (21:56)
[2024-01-27] MEDS: sulfaMETHOX-TMP DS 800/160 TAB PO SCH (21:56)
[2024-01-27] MEDS: ketOROlac 15MG/ML VIAL (15MG/ML) IM ONE (21:57)
--- NOTE | 2024-01-27 22:12 | NUR ---
PATIENT REFUSED IBUPROFEN
== END 2024-01-27 22:14 | disposition home or self-care (01) ==
LOC: EDH 20:54
DX: N39.0 Urinary tract infection, site not specified (principal); E11.9 Type 2 diabetes mellitus without complications; E78.00 Pure hypercholesterolemia, unspecified; I10 Essential (primary) hypertension; Z88.0 Allergy status to penicillin
CPT/HCPCS: 99284; 82150; 80053; 83690; 87086; 81001; 81025; 36415; 96372; J1885

== ENCOUNTER 2024-11-19 23:16 | Emergency (ER) | payer BC ==
[~2024-11-19] VITALS: Ht 167.6 cm; Wt 111.1 kg
[~2024-11-19 23:16] MED LIST changes: +IBUP-2076 PO; +SULF1TAB42 PO
--- NOTE | 2024-11-19 23:33 | ERN ---
ED Note History of Present Illness Stated Complaint: SOB, EAR AND THROAT PAIN, CONGESTION, NAUSEA Chief Complaint: Multiple Complaints Time Seen by MD: 23:20 Time Seen by Midlevel: 23:20 Dictation: The Patient is a 39-year-old female with a history of gastric bypass who presents to the emergency department with complaints of nasal congestion, sore throat, bilateral ear pain onset two days ago. Patient reports that family member was sick similar symptoms. Patient denies cough, denies fevers Allergies: Coded Allergies: Penicillins (Unverified Allergy, Intermediate, 09/05/23) latex (Unverified Allergy, Intermediate, 09/05/23) Home Meds Active Scripts Ibuprofen (Ibuprofen) 400 Mg Tablet, 400 MG PO Q6HPRN, #10 TAB Prov:BALTAZAR CHAUDHARY MD 01/27/24 Sulfamethoxazole/Trimethoprim (Bactrim Ds Tablet) 800 Mg-160 Mg Tablet, 1 TAB PO BID for 7 Days, #14 TAB 0 Refills Prov:BALTAZAR CHAUDHARY MD 01/27/24 Ondansetron (Ondansetron Odt) 4 Mg Tab.rapdis, 4 MG PO TID for 3 Days, #9 TAB Prov:KHURRAM GARDNER 12/31/23 Nitrofurantoin Monohyd/M-Cryst (Macrobid 100 mg Capsule) 100 Mg Capsule, 100 MG PO BID for 5 Days, #10 CAP Prov:KHURRAM GARDNER 12/31/23 Reported Medications Loratadine (Claritin) 10 Mg Capsule, 10 MG PO DAILY, CAP 09/08/23 Metoprolol Tartrate (Metoprolol Tartrate) 100 Mg Tablet, 100 MG PO HS, TAB 09/05/23 Past Medical History Past Medical History: Diabetes-Type II, High Cholesterol, Hypertension Surgical History: Surgical History Other: GASTRIC SLEEVE Family History: DM Social History: Lives with family RN Note Reviewed/Agreed w/PFSH: Yes Review of System Dictation Constitutional: Negative for fever,chills, and weight loss Eyes: Negative for injury, pain,redness, and discharge ENT: Negative for injury, or swelling positive for ear pain, sore throat Cardiovascular: Negative for chest pain, palpitations, and edema Respiratory: Negative for shortness of breath, cough, and wheezing, Abdomen/GI: Negative for abdominal pain, nausea, vomiting, diarrhea, and constipation Back: Negative for injury and pain : Negative for injury, bleeding and discharge MS/Extremity: Negative for injury and deformity Skin: Negative for rash, and discoloration Neuro: Negative for headache, weakness, numbness, tingling, and seizure Psych: Negative for suicide ideation, homicidal ideation, and hallucinations Initial Vital Sign VS Vital Signs Date Time Temp Pulse Resp B/P (MAP) Pulse Ox O2 Delivery O2 Flow Rate FiO2 11/19/24 23:19 97.7 89 20 140/85 97 Room Air 0 Physical Exam Dictation Vital Signs reviewed General Appearance: Alert, oriented x 3, no acute distress, well developed, nourished. Head and Face: non-traumatic. Eyes: PERRL, pink conjunctivas, eyelid no trauma, anterior chamber with arcus s enilis. Ears: Pinnas intact and no signs of trauma or +erythema ear canals clear and no discharge TM no erythema Nose: No discharge, no bleeding. Oropharynx: Mouth normal, tongue pink. pharynx clear,no erythema, tonsils no exudates, no abscesses noted, mucous membrane moist Neck: Supple, non-tender, no thyromegaly, no masses, no JVD, no bruits Breast:Deferred Chest:No tenderness, no crepitus, no paradoxical movement, no retractions Lungs:Clear, well-ventilated, symmetric, no rales, no wheezing, no rhonchi, no stridor, good breath sounds bilaterally Heart: Regular rate, regular rhythm, no murmur, no gallops Vascular: no peripheral edema, Abdomen: Soft, positive bowel sounds, nondistended, no guarding, nontender, no rebound, no masses no hepatomegaly, no splenomegaly, no Enriquez's sign, no hernias. Rectal: Deferred Genital: Deferred Neurological: Normal speech, motor function intact, sensory function intact Musculoskeletal: Neck nontender, full range of motion, back nontender, full range of motion, Extremities: nontender, full range of motion Skin: Color pink, dry, no turgor, no rash, no lacerations, no abrasions, no contusions. Lymphatic: Deferred Results (Laboratory/Radiology) Laboratory/Radiology Laboratory Tests Test 11/19/24 23:16 11/19/24 23:38 Influenza Type A Antigen Negative For Type A Influenza Type B Antigen Negative For Type B SARS-CoV-2 Antigen (Rapid) POSITIVE FOR SARS AG Group A Streptococcus Rapid negative (NEGATIVE) Urine Color YELLOW (YELLOW) Urine Appearance CLEAR (CLEAR) Urine pH 6.0 (5.0-8.0) Urine Specific [place] 1.033 (1.001-1.031) Urine Protein 10 mg/dL (NEGATIVE) H Urine Glucose (UA) NEGATIVE mg/dL (NEGATIVE) Urine Ketones NEGATIVE mg/dL (NEGATIVE) Urine Occult Blood NEGATIVE (NEGATIVE) Urine Nitrate NEGATIVE (NEGATIVE) Urine Bilirubin NEGATIVE mg/dL (NEGATIVE) Urine Urobilinogen 3 mg/dL (0.2-1.0) H Urine Leukocyte Esterase NEGATIVE Tanya/uL Urine RBC 0-1 /HPF (0-1) Urine WBC 2-5 /HPF (0-1) H Urine Squamous Epithelial Cells MOD /HPF (0-2) Urine Bacteria RARE /HPF (None Seen) Urine HCG, Qualitative NEGATIVE (NEGATIVE) Labs Reviewed?: Yes ED Course ED Course Orders Procedure Category Date Status Time Covid19 (Sars Antigen LAB 11/19/24 Complete Rapid) 23:27 Influenza Type A & B, LAB 11/19/24 Complete Rapid 23:27 Rapid (Group A Strep) LAB 11/19/24 Complete 23:27 Acetaminophen 500mg PHA 11/19/24 Complete Tab (Tylenol 500mg T 23:30 ,Urine Test LAB 11/19/24 Complete 23:27 Urinalysis Profile LAB 11/19/24 Complete 23:55 Current Medications Medications (Trade) Dose Ordered Sig/Kin Route PRN Reason Start Time Stop Time Status Last Admin Dose Admin Acetaminophen (TYLenol 500MG TAB) 1,000 mg ONCE ONCE PO 11/19/24 23:30 11/19/24 23:41 DC 11/19/24 23:50 Vital Signs Date Time Temp Pulse Resp B/P (MAP) Pulse Ox O2 Delivery O2 Flow Rate FiO2 11/19/24 23:19 97.7 89 20 140/85 97 Room Air 0 Medical Decision Making MDM The Patient is a 39-year-old female with a history of gastric bypass who presents to the emergency department with complaints of nasal congestion, sore throat, bilateral ear pain onset two days ago. Patient reports that family member was sick similar symptoms. Patient denies cough, denies fevers Serology was positive for COVID-19. On physical exam patient is in no acute distress, nontoxic appearing, clear lung sounds. Stable vital signs. Patient instructed to follow up with PCP. Differential diagnosis: URI, COVID-19, strep throat, otitis media Need for hospitalization: Patient does not meet criteria for hospitalization. There are no social concerns with this patient. DX & DISP Disposition: Discharge Departure Impression: Primary Impression: COVID-19 virus infection Condition: Stable Additional Instructions: You tested positive for COVID-19 which is a virus and there is no need for antibiotics at this time. You can use [id number] medications for symptomatic treatment. Take Tylenol as needed for fevers. FOLLOW-UP WITH PRIMARY CARE PROVIDER IN 1 TO 2 DAYS. TAKE MEDICATIONS DIRECTED HERE IN THE EMERGENCY ROOM. OKAY TO CONTINUE HOME MEDICATIONS UNLESS OTHERWISE DISCUSSED DURING YOUR VISIT IN THE EMERGENCY ROOM TODAY. RETURN TO YOUR NEAREST EMERGENCY ROOM IF SYMPTOMS WORSEN OR IF THERE IS NO IMPROVEMENT. CALL 911 IF YOU NEED IMMEDIATE ASSISTANCE. TAKE TYLENOL [id number] NEEDED AND IF NO CONTRAINDICATIONS ARE PRESENT. INCREASE ORAL HYDRATION. A WOUND CULTURE OR URINE CULTURE WAS ORDERED HERE IN THE EMERGENCY ROOM DEPARTMENT PLEASE FOLLOW-UP WITH PRIMARY CARE PROVIDER AND ADVISE THEM TO GET REPEAT PORTS FROM OUR FACILITY. IF YOU HAD ANY LEO WRAP/SPLINTS THAT WERE APPLIED HERE, PLEASE DO NOT REMOVE THEM UNTIL YOU SEE YOUR PRIMARY CARE OR SPECIALTY. Referrals: EDMUND GEE Jr., MD (PCP) Time of Disposition: 00:45 I have reviewed the case, and I agree with, Diagnosis and Plan ORQUIDEA FERNANDEZ [employer] PERSON Nov 19, 2024 23:33
[2024-11-20 00:20] LABS: INFLUENZA TYPE A Negative For Type A (NEGATIVE); INFLUENZA TYPE B Negative For Type B (NEGATIVE)
[2024-11-20 00:25] LABS: ADD UA MICROSCOPIC YES; APPEARANCE,URINE CLEAR (CLEAR); GLUCOSE, URINE (UA) NEGATIVE (NEGATIVE); LEUKOCYTE ESTERASE ,URINE NEGATIVE Leu/uL (NEGATIVE); NITRATE,URINE NEGATIVE (NEGATIVE); OCCULT BLOOD,URINE NEGATIVE (NEGATIVE)
[2024-11-20 00:31] LABS: SQUAMOUS EPITHELIAL CELL,UR MOD /HPF (0-2)
[2024-11-20 00:34] LABS: COVID19 (SARS ANTIGEN RAPID) POSITIVE FOR SARS AG (NEGATIVE)
[2024-11-20 00:40] LABS: RAPID GROUP A STREP negative (NEGATIVE)
[2024-11-20 00:44] VITALS: BP 136/80; PULSE 85; RESP 18; TEMP 98; O2SAT 98
== END 2024-11-20 00:49 | disposition home or self-care (01) ==
LOC: EDH 23:16
DX: U07.1 COVID-19 (principal); E11.9 Type 2 diabetes mellitus without complications; E78.00 Pure hypercholesterolemia, unspecified; I10 Essential (primary) hypertension; Z88.0 Allergy status to penicillin; Z91.040 Latex allergy status
CPT/HCPCS: 81001; 81025; 87426; 87804; 87880; 99283